=== PATIENT | female | born 1950 | race Caucasian/White ===

== ENCOUNTER → 2023-11-10 12:38 | Outpatient (REF) | payer OTHER, SELFPAY | LOC: HWRAD 12:38 | DX: M25.551 Pain in right hip (principal); M25.561 Pain in right knee | CPT/HCPCS: 73502; 73560 ==

== ENCOUNTER → 2023-11-27 07:41 | Outpatient (REF) | payer OTHER, SELFPAY | LOC: HWRAD 07:41 | DX: R10.11 Right upper quadrant pain (principal) | CPT/HCPCS: 76700 ==